=== PATIENT | female | born 1990 | race Caucasian/White ===

== ENCOUNTER 2018-12-14 10:59 | Emergency (ER) | payer BC, OTHER ==
[2018-12-14] MEDS ORDERED: ORPHENADRINE CITRATE 30 MG/ML AMP IV ONE (11:20)
[2018-12-14] MEDS ORDERED: KETOROLAC TROMETHAMINE INJ 30 MG/ML VIAL IV ONE (11:20)
--- NOTE | 2018-12-14 11:42 | ED.PDOC ---
History of Present Illness - General Chief Complaint: Problem Stated Complaint: kidney pain Time Seen by Provider: 12/14/18 11:19 Source: patient Exam Limitations: no limitations - History of Present Illness Initial Comments: PT C/O LBP. HAS HAD INTERMITTENT FOR PAST YEAR. THIS EPISODE FOR PAST 3 DAYS. WAS SEEN AT URGENT CARE, [facility] REPORTED[facility] NE[facility], BUT WAS GIVEN SHOT OF TORADOL AND ROCEPHIN WHILE AWAITING CULTURES. STATES SHE'S NOT ANY BETTER. PAIN CONSTANT, SHARP, NON RADIATING. DOES NOT INCREASE WITH MOVEMENT. Timing/Duration: other - 4 DAYS. Severity: moderate Improving Factors: nothing Worsening Factors: nothing Allergies/Adverse Reactions: Allergies Penicillins Adverse Reaction (Verified 12/14/18 11:11) Sulfa Antibiotics Adverse Reaction (Verified 12/14/18 11:11) Sulfamethoxazole w/Trimethoprim [From Bactrim] Adverse Reaction (Verified 12/14/18 11:11) Home Medications: Ambulatory Orders Indomethacin 50 mg PO TID PRN #14 cap 12/14/18 Tramadol HCl [Ultram] 50 mg PO Q6HR PRN #15 tab 12/14/18 Review of Systems - Review of Systems Constitutional: Denies: chills, fever EENTM: States: no symptoms reported Respiratory: Denies: cough, short of breath Cardiology: Denies: chest pain, palpitations Gastrointestinal/Abdominal: States: nausea, vomiting. Denies: abdominal pain Genitourinary: Denies: dysuria, frequency, hematuria Musculoskeletal: States: back pain. Denies: neck pain Skin: States: no symptoms reported Neurological: Denies: numbness, paresthesia, tingling, weakness Endocrine: States: no symptoms reported Hematologic/Lymphatic: States: no symptoms reported Past Medical History (General) - Patient Medical History Hx Asthma: No Hx Hypertension: No Hx Diabetes: No Hx Renal Disease: No Hx Cancer: No Hx Hepatitis C: No Surgical History: tonsillectomy - Vaccination History Hx Tetanus, Diphtheria Vaccination: No Hx Influenza Vaccination: No Hx Pneumococcal Vaccination: No Immunizations Up to Date: No - Social History Hx Tobacco Use: Yes Hx Alcohol Use: No Hx Substance Use: No Hx Substance Use Treatment: No Hx Depression: No - Female History Patient is a Female of Child Bearing Age (10 -59 yrs old): Yes Patient : No Expected Date of Delivery:: 10/31/13 Family Medical History - Family History Mother Living Status: Age at (years of age): 47 Cause of : cancer Hx Family Asthma: No Hx Family Congestive Heart Failure: No Hx Family Hypertension: No Hx Family Stroke: No Hx Family Diabetes: No Hx Family Cancer: Yes Hx Family;Other: cancer x2 at age 40 the first time at age 46 the 2nd time Father Age (years): 54 Living Status: Still Living Hx Family Asthma: No Hx Family Congestive Heart Failure: Yes Age of Onset (years of age): 30 Hx Family Hypertension: Yes Age of Onset (years of age): 30 Hx Family Stroke: No Hx Family Diabetes: No Hx Family Cancer: No Hx Family;Other: has had heart attack unknown age Maternal Grandparents Living Status: Age at (years of age): 68 Cause of : cancer, anusrim Hx Family Asthma: No Hx Family Congestive Heart Failure: No Hx Family Hypertension: Yes Hx Family Stroke: No Hx Family Diabetes: No Hx Family Cancer: Yes Age of Onset (years of age): 65 Hx Family;Other: Maternal grandfather 68 cancer maternal grandmother 67 anusrim Physical Exam - Physical Exam General Appearance: Alert, No apparent distress Eye Exam: bilateral normal Ears, Nose, Throat: hearing grossly normal, normal ENT inspection Neck: non-tender, full range of motion, supple Respiratory: lungs clear, normal breath sounds Cardiovascular/Chest: regular rate, rhythm, no murmur Gastrointestinal/Abdominal: normal bowel sounds, non tender, soft, no organomegaly Back Exam: normal inspection, no vertebral tenderness, other - MILD DIFFUSE TTP NO SPASM, Extremity: normal range of motion, non-tender, normal inspection Neurologic: no motor/sensory deficits, alert, normal mood/affect DTR: 2+: Achilles, left, Achilles, right, Patellar, left, Patellar, right Skin Exam: normal color, warm/dry Lymphatic: no adenopathy Progress - Progress Progress: 12/14/18 14:45 PT RESTING COMFORTABLE BUT STILL C/O PAIN. - EKG/XRAY/CT CT: L OVARIAN CYST. (8CM) Departure - Departure Clinical Impression: Ovarian cyst Qualifiers: Laterality: left Qualified Code(s): N83.202 - Unspecified ovarian cyst, left side Time of Disposition: 14:48 Disposition: Discharge to Home or Self Care Condition: Good Departure Forms: ED Discharge - Pt. Copy, Patient Portal Self Enrollment Instructions: Ovarian Cysts Referrals: Sari Beck NP [Primary Care Provider] - 1-2 Weeks Prescriptions: Tramadol HCl [Ultram] 50 mg PO Q6HR PRN #15 tab PRN Reason: Pain Indomethacin 50 mg PO TID PRN #14 cap PRN Reason: Pain Home Medications: Ambulatory Orders Indomethacin 50 mg PO TID PRN #14 cap 12/14/18 Tramadol HCl [Ultram] 50 mg PO Q6HR PRN #15 tab 12/14/18
--- NOTE | 2018-12-14 14:25 | CT ---
EXAM DESCRIPTION: Abdomen/Pelvis w/o Contrast: Computed Tomography. CLINICAL HISTORY: FLANK PAIN, STONE STUDY COMPARISON: None. TECHNIQUE: Spiral-axial scans at 2.5 x 2.5 mm intervals through the abdomen and pelvis. Coronal and sagittal 2.0mm reconstructions. No IV or oral contrast. Total Exam DLP: 663.45 mGy-cm. This exam was performed according to our departmental CT dose-optimization program which includes automated exposure control, adjustment of the mA and/or kV according to patient size and/or use of iterative reconstruction technique; to reduce radiation dose to as low as reasonably achievable (ALARA). FINDINGS: Kidneys and Ureters: Normal size and cortical thickness. 2 mm radiodense stone or gravel in the inferior collecting system. No radiodense stones in the right kidneys or ureter. No perirenal fluid or hydronephrosis bilaterally. Left ureter displaced by left adnexal mass. Both ureters are difficult to visualize distally. 3.3 mm calcification abutting the left superior posterior bladder in the soft tissues or radiodense stone in the distal left ureter.. Pelvic Organs: No radiodense stones urinary bladder.. Compressed anteriorly by sigmoid colon filled with fecal material. Left adnexal mass partially cystic measures 7.9 x 6.4 cm in the axial plane and 6.3 cm in the coronal plane with Hounsfield density between +12 and +18. Mass effect on the uterus which is anteverted, as well as on the left iliac vessels, left ureter, and small bowel. Minimal fluid in the cul-de-sac. Follicles in the right ovary. Possible calcification in the mid uterus. No other masses in the pelvis.. Lung and pleura bases: Negative. Liver, spleen, stomach, and adrenal glands: Small sliding hiatal hernia but other solid organs are negative. Pancreas, Gallbladder, Ducts: Gallbladder visualized. Uniform density of the pancreas and uniform caliber of the common bile duct. Aorta: Normal outer caliber. Small calcification in the proximal right common iliac artery. Small Bowel: Gas and minimal fluid but no large air-fluid levels, no significant distention in the included segments. Terminal Ileum/Cecum: Normal caliber with minimal gas and fluid. Prominent appendix containing radiodense material possibly appendicolith but no inflammatory changes. Colon: Diffuse fecal material with minimal redundancy of the sigmoid colon impressing on the urinary bladder. No significant distention. Mesentery: No ascites, no fatty stranding or fascial thickening. No free intraperitoneal air. Spine and Bony Pelvis: Lumbar levoscoliosis. Early spondylosis L4-L5. Left foraminal and canal narrowing. Abdominal Wall/Back Soft Tissues: Unremarkable. IMPRESSION: 1. 7.9 cm partially cystic left adnexal mass most likely related to ovary. .Probably benign ovarian cyst. No definite calcifications. Consider initial pelvic ultrasound follow-up. Recommend. Follow-up pelvic MRI with IV contrast or surgical evaluation, depending on how, pelvic ultrasound. Reference: J Am Kathia Radiol 2013;10:[id number]. 2. Tiny stone or gravel in the inferior collecting system of the left kidney with no hydronephrosis. Right kidney, proximal and mid ureters unremarkable. Distal ureters difficult to visualize. Mass effect on the distal left ureter from the adnexal mass. 3.3 mm radiodense stone in the distal ureter versus calcification in the pelvic soft tissues. Mass effect on the urinary bladder but no radiodense stones. Correlate with clinical findings and consider follow-up abdominal pelvic CT scan with IV contrast. 3. Radiodense fecal matter versus appendicolith in the minimally dilated appendix but no inflammatory changes. Diffuse moderate amount of fecal matter throughout the colon, moderate obstipation. Electronically signed by: Gabriel Johnson MD 12/14/2018 2:23 PM CDT
[2018-12-14 15:25] VITALS: BP 122/76; TEMP 98.9; O2SAT 97
== END 2018-12-14 15:00 | disposition home or self-care (01) ==
LOC: ER 10:59
DX: N83.202 Unspecified ovarian cyst, left side (principal); M54.5 Low back pain; Z87.891 Personal history of nicotine dependence; Z88.0 Allergy status to penicillin; Z88.2 Allergy status to sulfonamides
CPT/HCPCS: 74176; 80048; 81001; 85025; J1885; J2360